=== PATIENT | female | born 1995 | race Caucasian/White ===

== ENCOUNTER 2021-03-17 14:16 | Emergency (ER) | payer MEDICAID, SELFPAY ==
--- NOTE | ~2021-03-17 | US_ITS ---
EXAMINATION: US OBSTETRICAL ULTRASOUND CLINICAL INFORMATION: Pelvic pain. HCG 3670. Last menstrual period unknown. COMPARISON: None. TECHNIQUE: Transabdominal and transvaginal grayscale and color Doppler images were obtained. FINDINGS: There is a single intrauterine gestational sac measuring 0.4 cm and corresponding to a sonographic gestational age of 5 weeks and 0 days. No yolk sac or pole are identified. No subchorionic bleeding. The cervical os is closed. MATERNAL ADNEXA: The right maternal ovary measures 3.4 x 1.4 x 2.0 cm. There is preserved flow on color Doppler. The left maternal ovary measures 3.1 x 2.2 x 2.0 cm. There is preserved on color Doppler. There is no significant maternal adnexal mass. No maternal pelvic ascites. US/US OB <= 14 weeks fetus IMPRESSION: There is a single intrauterine gestational sac corresponding to a gestational age of 5 weeks and 0 days. At this moment, there is no evidence of yolk sac or pole likely due to early gestation. Recommend correlation with quantitative hCG and serial pelvic ultrasounds to ensure viability of the . No evidence of ovarian torsion at the moment of this study. No free fluid.
[2021-03-17 16:18] VITALS: BP 147/88; PULSE 87; RESP 18; BMI 29.2
--- NOTE | 2021-03-17 17:16 | ED_ITS ---
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 Patient tells me her last menstrual cycle was the 1st or 2nd week of December. She is sex ually active. She is not taking any contraception. She did take a test this week and it was positive. She has not followed up with an OB doctor. m She denies any vaginal bleeding she has 1 living child. no history of miscarriages or abortions Related Data Previous Rx's Medication Instructions Recorded prenat.vits,colleen,xbb-[id number] 1 tab PO DAILY #30 tab 03/17/21 Allergies Allergy/AdvReac Type Severity Reaction Status Date / Time No Known Allergies Allergy Verified 03/17/21 16:24 [No Known Allergies*] Review of Systems Review of Systems Yes all other systems are reviewed and are negative Constitutional: Reports no additional constitutional complaints, Denies body ache(s), Denies chills, Denies fever(s), Denies headache(s) and Denies weakness Eyes: Reports no additional eye complaints and Denies change in vision Reports system reviewed and no additional complaints, except as documented, Denies dizziness, Denies headache(s), Denies nasal congestion, Denies nasal discharge and Denies neck pain Cardiovascular: Reports no additional cardiovascular complaints, Denies chest pain, Denies leg edema and Denies dyspnea Respiratory: Reports no additional respiratory complaints, Denies cough and Denies dyspnea Gastrointestinal: Reports no additional gastrointestinal complaints, Denies abdo iesha pain, Denies diarrhea, Denies nausea and Denies vomiting Genitourinary: Reports no additional female genitourinary complaints, Denies abnormal vaginal bleeding, Reports pelvic pain, Denies urinary incontinence and Reports vaginal discharge Musculoskeletal: Reports no additional musculoskeletal complaints, Denies back pain, Denies arthralgias, Denies joint swelling, Denies neck pain, Denies numbness and Denies tingling Skin/Breast: Reports system reviewed and no additional complaints, except as docu and Denies rash Reports system reviewed and no additional complaints, except as documented, Denies Abnormal speech present, Denies dizziness, Denies headache(s), Denies numbness, Denies tingling and Denies weakness Physical Exam Vital Signs: Vital Signs: Last Vital Signs Temp 98.4 F 03/17/21 20:00 Pulse 76 03/17/21 20:00 Resp 18 03/17/21 20:00 BP 116/64 03/17/21 20:00 Pulse Ox 96 03/17/21 20:00 Body Mass Index 29.2 Const: General: cooperative, healthy appearing, comfortable and no acute distress Orientation/consciousness: patient oriented x3 Limitations: no limitations HENMT: Head: Yes normal to inspection Ears: hearing grossly normal bilaterally and TM's normal bilaterally General nose exam: Normal external nose present Face and sinus: Yes normal facial exam Mouth: Normal oral and palatal mucosa present Throat: Yes posterior oropharynx normal Eyes: General: appearance normal, both eyes and all related structures Pupils: Equal, round and reactive pupils present Neck: Neck: Yes normal visual inspection Chest: Chest palpation & inspection: normal inspection of the chest Resp: Effort & Inspection: normal respiratory effort Auscultation: clear to auscultation bilaterally Cardio: Rate: regular rate Rhythm: regular rhythm Peripheral pulses: Peripheral pulses 2+ throughout GI: Inspection: Yes normal to inspection Palpation (GI): Soft to palpation and Tenderness to palpation present (GI) ( mild pelvic tenderness and over the lower abdomen bilaterally with no rebo) Auscultation: normal bowel sounds : 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[facility] External Female Exam: normal external appearance Speculum Exam - Vagina: normal appearance of the vagina and abnormal vaginal discharge ( medium amount creamy yellow discharge) Speculum Exam - Cervix: normal appearance of the cervix, normal palpation, Cervical os closed and nontender Bimanual exam- vagina & uterus: normal bimanual exam, normal palpation and No Cervical tenderness present Bimanual Exam- Adnexa, other: normal adnexae, no masses and no tenderness Back/Spine/Pelvis: Thoracic/Lumbar Spine: thoracic and lumbar spine normal to inspection Skin: General skin exam: no rashes or lesions noted Neuro: General: patient oriented x3, no focal motor deficits and normal sensation to monofilament Cranial nerves: Yes Equal, round and reactive pupils present Cognition (Neuro): normal cognition Speech: No Abnormal speech present Gait exam (Neuro): Normal gait present Motor exam (neuro): 5/5 motor strength present throughout Extrem: General: Yes normal to inspection Course Course Course Narrative: 25-year-old female here with complaints of lower abdominal pitting and discomfort with some creamy yellow vaginal discharge for the last few days. Took at home testing was positive. No vaginal bleeding. Has not had any care to this point. Exam the patient has some mild lower abdominal tenderness bilaterally with no rebound or guarding. Her pelvic exam is unremarkable with the exception of some yellow vaginal discharge. Will check urine, urine , labs. 2100- pelvic ultrasound shows an intrauterine at about 5 weeks. There is no yolk sac or pole seen likely due to early gestation. I discussed findings with the patient. She was given a lab slip for repeat hCG levels and 48 hours. I reviewed worrisome signs and symptoms with her such as severe pain, vaginal bleeding. She is having some vaginal discharge. She tells me she is not concerned about STD exposure and I explained to her that we did test her for all STDs. She wishes to defer treatment until her test results are back. She is aware she may need to return for treatment. She is also aware that untreated STDs are dangerous in . given follow-up for OB. comfortable plan for discharge home. MDM - Abdominal Pain MDM Narrative Medical decision making narrative: pid, Vaginitis, std, ectopic , UTI Medical Records Attestation: I reviewed the patient's medical records. Lab Data Attestation: I reviewed the patient's lab results. Result diagrams: 03/17/21 17:41 03/17/21 17:41 Labs: Lab Results 03/17/21 03/17/21 03/17/21 Range/Units 17:41 17:41 17:52 WBC 10.2 (4.8-10.8) X10*3/uL RBC 4.04 L (4.20-5.50) X10*6/uL Hgb 12.1 (12.0-16.0) g/dl Hct 35.0 L (37.0-47.0) % MCV 86.6 (80.0-98.0) fL MCH 30.0 (27.0-33.0) pg MCHC 34.6 (31.0-35.0) g/dl RDW 12.4 (11.0-16.0) % Plt Count 334 (160-400) X10*3/uL MPV 9.3 L (9.4-12.3) fL Immature Gran % (Auto) 0.5 H (0.0-0.4) % Neut % (Auto) 50.9 (45-73) % Lymph % (Auto) 42.1 H (20-40) % [place] % (Auto) 5.3 (2-11) % Eos % (Auto) 0.8 (0-4) % Baso % (Auto) 0.4 (0-2) % Lymph # (Auto) 4.3 (1.2-4.9) X10*3/uL [place] # (Auto) 0.5 (0.1-1.2) X10*3/uL Eos # (Auto) 0.1 (0.0-0.4) X10*3/uL Baso # (Auto) 0.0 (0.0-0.2) X10*3/uL Abs Immat Gran (auto) 0.05 H (0.00-0.03) X10*3/uL Absolute Neuts (auto) 5.2 (2.0-8.3) x10*3/uL Absolute Nucleated RBC 0.000 (0.0-0.012) X10*3/uL Nucleated RBC % (auto) 0.0 (0.0-0.2) /100WBC Sodium 138 (135-145) mmol/L Potassium 3.8 (3.3-5.1) mmol/L Chloride 107 (96-108) mmol/L Carbon Dioxide 22 (22-29) mmol/L Anion Gap 13 (12-20) BUN 12 (9-16) mg/dL Creatinine 0.82 (0.5-1.4) mg/dL Estim Creat Clear Calc 98.6 Estimated GFR > 60 Random Glucose 88 (60-115) mg/dL Calcium 9.0 (8.4-10.2) mg/dL Total Bilirubin 0.2 (0.0-1.0) mg/dL AST 15 (5-31) U/L ALT 15 (0-31) U/L Alkaline Phosphatase 86 (39-117) U/L Total Protein 7.2 (6.5-8.0) g/dL Albumin 4.1 (3.5-5.0) g/dL Beta HCG, Quant 3670 mIU/mL Urine Color Urine Appearance Urine pH (5.0-8.0) Ur Specific [place] (1.005-1.025) Urine Protein (NEG-TRACE) MG/DL Urine Glucose (UA) (NEG) MG/DL Urine Ketones (NEG) MG/DL Urine Blood (NEG) Urine Nitrite (NEG) Ur Leukocyte Esterase (NEG) Urine RBC (0) /HPF Urine WBC (0-4) /HPF Ur Squamous Epith Cells /LPF Amorphous Sediment /LPF Urine Bacteria /LPF Urine Test POSITIVE H (NEGATIVE) 03/17/21 Range/Units 17:52 WBC (4.8-10.8) X10*3/uL RBC (4.20-5.50) X10*6/uL Hgb (12.0-16.0) g/dl Hct (37.0-47.0) % MCV (80.0-98.0) fL MCH (27.0-33.0) pg MCHC (31.0-35.0) g/dl RDW (11.0-16.0) % Plt Count (160-400) X10*3/uL MPV (9.4-12.3) fL Immature Gran % (Auto) (0.0-0.4) % Neut % (Auto) (45-73) % Lymph % (Auto) (20-40) % [place] % (Auto) (2-11) % Eos % (Auto) (0-4) % Baso % (Auto) (0-2) % Lymph # (Auto) (1.2-4.9) X10*3/uL [place] # (Auto) (0.1-1.2) X10*3/uL Eos # (Auto) (0.0-0.4) X10*3/uL Baso # (Auto) (0.0-0.2) X10*3/uL Abs Immat Gran (auto) (0.00-0.03) X10*3/uL Absolute Neuts (auto) (2.0-8.3) x10*3/uL Absolute Nucleated RBC (0.0-0.012) X10*3/uL Nucleated RBC % (auto) (0.0-0.2) /100WBC Sodium (135-145) mmol/L Potassium (3.3-5.1) mmol/L Chloride (96-108) mmol/L Carbon Dioxide (22-29) mmol/L Anion Gap (12-20) BUN (9-16) mg/dL Creatinine (0.5-1.4) mg/dL Estim Creat Clear Calc Estimated GFR Random Glucose (60-115) mg/dL Calcium (8.4-10.2) mg/dL Total Bilirubin (0.0-1.0) mg/dL AST (5-31) U/L ALT (0-31) U/L Alkaline Phosphatase (39-117) U/L Total Protein (6.5-8.0) g/dL Albumin (3.5-5.0) g/dL Beta HCG, Quant mIU/mL Urine Color YELLOW Urine Appearance HAZY Urine pH 6.5 (5.0-8.0) Ur Specific [place] 1.020 (1.005-1.025) Urine Protein NEG (NEG-TRACE) MG/DL Urine Glucose (UA) NEG (NEG) MG/DL Urine Ketones NEG (NEG) MG/DL Urine Blood NEG (NEG) Urine Nitrite NEG (NEG) Ur Leukocyte Esterase 1+ H (NEG) Urine RBC 0 (0) /HPF Urine WBC 1-4 (0-4) /HPF Ur Squamous Epith Cells 3+ /LPF Amorphous Sediment 1+ /LPF Urine Bacteria NONE /LPF Urine Test (NEGATIVE) Imaging Data pelvic US: Attestation: I personally reviewed and interpreted this imaging study as follows: Radiologist's impression: IMPRESSION: ? There is a single intrauterine gestational sac corresponding to a gestational age of 5 weeks and 0 days. At this moment, there is no evidence of yolk sac or pole likely due to early gestation. Recommend correlation with quantitative hCG and serial pelvic ultrasounds to ensure viability of the . ? No evidence of ovarian torsion at the moment of this study. ? No free fluid. ? Discharge Plan Discharge Clinical Impression: Threatened , Early stage of Patient Disposition: Home, Self-Care Instructions: Threatened Miscarriage (ED), (ED) Additional Instructions: Tylenol only for pain increase fluid return for severe pain or vaginal bleeding your ultrasound does show a intrauterine however it is too early to see the heart beat and all of the parts of the fetus follow-up with Ob repeat hormone level in 48 hours pelvic rest Prescriptions: New prenat.vits,colleen,krr-ltqq-[id number] Tablet 1 tab PO DAILY Qty: 30 RF: 0 Referrals: Terry Odonnell MD [Physician] - 2 days Interventions: ED Discharge Assessment Last Done: 03/17/21 20:41 Discharge Date/Time: 03/17/21 20:42 Print Language: Sinhala [facility] Past Medical History Attestation statement: The following information was validated with the patient. Source: old records reviewed and nursing notes reviewed Social History Social History Advance Directives: No Advance Directives Information Provided: No Patient : Yes
[2021-03-17 17:57] LABS: MANUAL DIFF FLAG NO
[2021-03-17 18:00] LABS: Appearance Urine HAZY; Color Urine YELLOW; Glucose Urine UA NEG (NEG); Leukocyte Esterase Urine 1+ (NEG); Nitrite Urine NEG (NEG); PH 6.5 (5.0-8.0); UACC Culture Trigger YES; Urine Blood NEG (NEG); Urine Ketones NEG (NEG); Urine Protein NEG (NEG-TRACE)
[2021-03-17 18:02] LABS: UPreg QC Valid YES; Urine Pregnancy POSITIVE (NEGATIVE)
[2021-03-17 18:08] LABS: Amorphous Sediment Urine 1+ /LPF; RBC Urine 0 /HPF (0); Squamous Epithelial Cell Urine 3+ /LPF
[2021-03-17 18:17] LABS: Basophils Percent Auto 0.4 % (0-2); Eosinophils Absolute Auto 0.1 X10*3/uL (0.0-0.4); Eosinophils Percent Auto 0.8 % (0-4); Hemoglobin 12.1 g/dl (12.0-16.0); Imm Gran Abs Auto 0.05 X10*3/uL (0.00-0.03); Imm Gran Pct Auto 0.5 % (0.0-0.4); Lymphocytes Absolute Auto 4.3 X10*3/uL (1.2-4.9); Lymphocytes Percent Auto 42.1 % (20-40); Mean Corpuscular HGB Conc 34.6 g/dl (31.0-35.0); Mean Corpuscular Volume 86.6 fL (80.0-98.0); Mean Platelet Volume 9.3 fL (9.4-12.3); Monocytes Absolute Auto 0.5 X10*3/uL (0.1-1.2); Monocytes Percent Auto 5.3 % (2-11); Neutrophils Absolute Auto 5.2 x10*3/uL (2.0-8.3); Neutrophils Percent Auto 50.9 % (45-73); Platelet Count 334 X10*3/uL (160-400); Red Blood Count 4.04 X10*6/uL (4.20-5.50); Red Cell Distribution Width 12.4 % (11.0-16.0); White Blood Count 10.2 X10*3/uL (4.8-10.8)
[2021-03-17 18:21] LABS: Alanine Aminotransferase 15 U/L (0-31); Albumin Level 4.1 g/dL (3.5-5.0); Alkaline Phosphatase 86 U/L (39-117); Anion Gap 13 (12-20); Aspartate Amino Transferase 15 U/L (5-31); Bilirubin Total 0.2 mg/dL (0.0-1.0); Blood Urea Nitrogen 12 mg/dL (9-16); Carbon Dioxide 22 mmol/L (22-29); Chloride 107 mmol/L (96-108); Creatinine Clr Calc Pharmacy 98.6; Estimated Glomerular Filt Rate > 60; Glucose Random 88 mg/dL (60-115); Potassium 3.8 mmol/L (3.3-5.1); Sodium 138 mmol/L (135-145); Total Protein 7.2 g/dL (6.5-8.0)
[2021-03-17 18:27] LABS: HCG Quantitative 3670 mIU/mL
[2021-03-17 20:00] VITALS: BP 116/64; PULSE 76; RESP 18; TEMP 36.9; O2SAT 96
--- NOTE | 2021-03-17 20:06 | PC.NURSE ---
Pt alert and oriented x4, calm and cooperative. Pt states abd pain has improved, denies N/V. IV intact, vitals stable. Pt resting in stretcher without issues, will continue to monitor.
[2021-03-18 05:31] LABS: CT PCR NOT DETECTED (Not Detect.); NG PCR NOT DETECTED (Not Detect.)
[2021-03-18 09:21] LABS: BV Int Neg Control Negative (Negative); BV Int Pos Control Positive (Positive)
== END 2021-03-17 20:42 | disposition home or self-care (01) ==
PROVIDERS: Nurse Practitioner Family; Emergency Provider Emergency Medicine
DX: O20.0 Threatened abortion (principal); Z3A.01 Less than 8 weeks gestation of pregnancy
CPT/HCPCS: 36415; 76801; 80053; 81001; 81025; 84702; 85025; 87086; 87480; 87491; 87510; 87591; 87660; 99284

== ENCOUNTER 2021-03-31 14:34 | Outpatient (REF) | payer MEDICAID, SELFPAY ==
--- NOTE | ~2021-03-31 | US_ITS ---
EXAMINATION: US OBSTETRICAL ULTRASOUND CLINICAL INFORMATION: Encounter for supervision abnormal COMPARISON: Previous exam 03/17/2021. LMP: Unknown. Gestational age by maternal dates is . Estimated date of delivery by maternal dates is . TECHNIQUE: Transabdominal and transvaginal first trimester OB ultrasound FINDINGS: The uterus is anteverted and measures 9.3 x 5.8 x 7 cm in dimension. There is an intrauterine gestational sac. Strum-rump length measures 0.7 cm suggesting gestational age of 6 weeks 4 days with estimated date of delivery of 11/20/2021. heart rate is 135 bpm. There is a yolk sac. The maternal ovaries are normal. The right maternal ovary measures 4.2 x 2 x 1.9 cm and the left 2.4 x 2.7 x 1.8 cm. There is no fluid in the pelvis. US/US OB <= 14 weeks fetus IMPRESSION: 1. Single intrauterine gestation with ultrasound gestational age of 6 weeks 4 days +/- 4 days. 2. Estimated date of delivery is 11/20/2021 +/- 4 days. 3. No maternal adnexal mass or pelvic ascites.
== END 2021-03-31 14:35 | disposition home or self-care (01) ==
LOC: HO.US 14:34
PROVIDERS: Visit Provider Obstetrics & Gynecology
DX: Z34.91 Encounter for supervision of normal pregnancy, unspecified, first trimester (principal)
CPT/HCPCS: 76801; 99212

== ENCOUNTER 2021-04-14 09:57 | Outpatient (REF) | payer MEDICAID, SELFPAY ==
[2021-04-14 11:41] LABS: Hematocrit 36.4 % (37.0-47.0); Hemoglobin 12.3 g/dl (12.0-16.0); Mean Corpuscular HGB Conc 33.8 g/dl (31.0-35.0); Mean Corpuscular Hemoglobin 29.3 pg (27.0-33.0); Mean Corpuscular Volume 86.7 fL (80.0-98.0); Mean Platelet Volume 9.4 fL (9.4-12.3); Platelet Count 353 X10*3/uL (160-400); Red Cell Distribution Width 12.4 % (11.0-16.0); White Blood Count 8.3 X10*3/uL (4.8-10.8)
[2021-04-14 12:31] LABS: ~Hepatitis C Antibody Nonreactive (Nonreactive)
[2021-04-14 12:33] LABS: HBsAGNum1 0.26 S/CO (0.00-0.99); HIV AB/AG Nonreactive (Nonreactive); HIV Num 1 0.06 S/CO (0.00-0.99); Hepatitis B Surface Antigen Negative (Negative)
[2021-04-14 12:56] LABS: Syphilis Screen Nonreactive (Nonreactive)
[2021-04-16 05:06] LABS: Rubella IgG Antibody 1.09 Index
== END 2021-04-14 09:58 | disposition home or self-care (01) ==
LOC: HO.LAB 09:57
PROVIDERS: PCP Internal Medicine; Visit Provider Obstetrics & Gynecology
DX: O21.9 Vomiting of pregnancy, unspecified (principal); Z3A.08 8 weeks gestation of pregnancy
CPT/HCPCS: 85027; 86762; 86780; 86787; 86803; 86850; 86900; 86901; 87340; 87389; 99212

== ENCOUNTER 2021-05-08 15:13 | Outpatient (REF) | payer MEDICAID, SELFPAY ==
[2021-05-09 14:22] LABS: BV Int Neg Control Negative (Negative); BV Int Pos Control Positive (Positive)
[2021-05-09 14:24] LABS: CT PCR NOT DETECTED (Not Detect.); NG PCR NOT DETECTED (Not Detect.)
== END 2021-05-08 15:14 | disposition home or self-care (01) ==
LOC: HO.LAB 15:13
PROVIDERS: Visit Provider Advanced Practice Midwife
DX: Z01.419 Encounter for gynecological examination (general) (routine) without abnormal findings (principal); O21.9 Vomiting of pregnancy, unspecified; O21.0 Mild hyperemesis gravidarum; O36.80X0 Pregnancy with inconclusive fetal viability, not applicable or unspecified; Z20.2 Contact with and (suspected) exposure to infections with a predominantly sexual mode of transmission; Z79.899 Other long term (current) drug therapy; Z3A.12 12 weeks gestation of pregnancy
CPT/HCPCS: 87480; 87491; 87510; 87591; 87660; 88142; 99212

== ENCOUNTER 2021-05-09 09:40 | Outpatient (REF) | payer MEDICAID, SELFPAY ==
--- NOTE | ~2021-05-09 | US_ITS ---
EXAMINATION: OBSTETRICAL ULTRASOUND, FIRST TRIMESTER HISTORY: 25-year-old at the 12.1 weeks of gestation NT screening COMPARISON: 03/31/2021 TECHNIQUE: Real time transabdominal imaging with color and M-mode Doppler. FINDINGS: A single, live IUP CRL of 60.0 mm c/w 12.4wks is noted. Heart Rate: 149 beats per minute. Normal yolk sac seen. NT was 1.9.mm. NB Present The embryo appears sonographically wnl for this GA. Both maternal ovaries are seen and appear normal. GESTATIONAL AGE: 1. Established GA: 12.1 wks 2. GA from [facility]: 12.4 wks ESTIMATED DATE OF DELIVERY: 1. Established RAYSHAWN: 11/20/2021 2. RAYSHAWN from [facility]: 11/17/2021 US/US OB 1T nuc measure IMPRESSION: 1. A single live IUP with CRL consistent with gestational age. 2. Normal NT 3. The embryo appears sonographically within normal limits for this age. MFM Consultation: I reviewed the ultrasound findings along with significance of NT measurement. The NT of less than 3mm is generally reassuring. However, the sensitivity for T21 detection is only 60%. I reviewed the availability of serum aneuploidy screening which includes cell-free DNA and placental protein based tests. I discussed the sensitivity, false-positive rate, and other limitations associated with each test. I also reviewed the availability of invasive diagnostic tests that are associated small but definite risk of miscarriage. We also reviewed the differences between screening tests and diagnostic tests. After our discussion, she opted for the First trimester screening that is based on cell-free DNA or non-invasive testing (NIPT). She had a normal full-term from a prior marriage. The result will be faxed to your office in approximately 7 days. A follow up at 18 weeks for survey has been scheduled. Thank you very much for this referral. Total time 30 minutes. The time spent was devoted to counseling the patient about the disease and diagnosis, coordinating care including reviewing her records, pertinent lab data and studies, as well as discussing diagnostic evaluation and workup, plan therapeutic interventions and future disposition of care. This includes any additional research needed to obtain further information in formulating the plan of care of this patient. This note was generated with a voice recognition program. Please excuse any errors which may have been overlooked during my review of this note. Sometimes these errors may affect the content or meaning of a given sentence.
== END 2021-05-09 09:41 | disposition home or self-care (01) ==
LOC: HO.US 09:40
PROVIDERS: PCP Internal Medicine; Visit Provider Advanced Practice Midwife
DX: O36.80X0 Pregnancy with inconclusive fetal viability, not applicable or unspecified (principal); Z3A.12 12 weeks gestation of pregnancy
CPT/HCPCS: 76813

== ENCOUNTER 2021-05-16 09:41 | Outpatient (REF) | payer MEDICAID, SELFPAY ==
[2021-05-16 14:08] LABS: CT PCR NOT DETECTED (Not Detect.); NG PCR NOT DETECTED (Not Detect.)
[2021-05-17 09:49] LABS: BV Int Neg Control Negative (Negative); BV Int Pos Control Positive (Positive)
== END 2021-05-16 09:42 | disposition home or self-care (01) ==
LOC: HO.LAB 09:41
PROVIDERS: PCP Internal Medicine; Visit Provider Advanced Practice Midwife
DX: O26.891 Other specified pregnancy related conditions, first trimester (principal); R10.9 Unspecified abdominal pain; R30.0 Dysuria; R35.0 Frequency of micturition; N89.8 Other specified noninflammatory disorders of vagina; Z3A.13 13 weeks gestation of pregnancy
CPT/HCPCS: 87086; 87480; 87491; 87510; 87591; 87660; 99212

== ENCOUNTER → 2021-05-28 16:12 | Outpatient (BNVA) | payer MEDICAID, SELFPAY | PROVIDERS: Visit Provider Obstetrics & Gynecology ==

== ENCOUNTER → 2021-06-05 09:54 | Outpatient (BNVA) | payer MEDICAID, SELFPAY | PROVIDERS: Visit Provider Obstetrics & Gynecology | DX: O28.5 Abnormal chromosomal and genetic finding on antenatal screening of mother (principal); Z3A.16 16 weeks gestation of pregnancy | CPT/HCPCS: 99212 ==

== ENCOUNTER 2021-06-19 07:55 | Outpatient (REF) | payer MEDICAID, SELFPAY ==
[2021-06-19 17:18] LABS: CT PCR NOT DETECTED (Not Detect.); NG PCR NOT DETECTED (Not Detect.)
[2021-06-20 13:06] LABS: BV Int Neg Control Negative (Negative); BV Int Pos Control Positive (Positive)
== END 2021-06-19 07:56 | disposition home or self-care (01) ==
LOC: HO.LAB 07:55
PROVIDERS: Visit Provider Obstetrics & Gynecology
DX: O26.892 Other specified pregnancy related conditions, second trimester (principal); N89.8 Other specified noninflammatory disorders of vagina; Z3A.18 18 weeks gestation of pregnancy
CPT/HCPCS: 87480; 87491; 87510; 87591; 87660; 99212

== ENCOUNTER 2021-06-20 10:05 | Outpatient (REF) | payer MEDICAID, SELFPAY ==
--- NOTE | ~2021-06-20 | US_ITS ---
EXAMINATION: US OBSTETRICAL CLINICAL INFORMATION: 25-year-old at 18.1 weeks of gestation N IPT suggestive of a triple X COMPARISON: 05/09/2021 TECHNIQUE: Real-time transabdominal ultrasound was performed using C1-5 megahertz transducer. FINDINGS: A single, active, fetus is seen in transverse presentation. The placenta is anterior without previa, and the amniotic fluid volume is wnl. MEASUREMENTS: 1. Biparietal Diameter: 4.0 cm; 18.2 wks 2. Occipital Frontal Diameter: 5.2 cm 3. Head Circumference: 15.2 cm; 18.2 wks 4. Abdominal Circumference: 12.9 cm; 18.4 wks 5. Femur Length: 2.8 cm; 18.5 wks 6. Humerus Length: 2.7 cm; 18.6 wks 7. Tibia Length: 2.5 cm; 18.6 wks 8. Ulna Length: 2.5 cm; 19.2 wks 9. Lateral ventricle: 0.6 cm 10. Cerebellum: 1.9 cm; 19.2 wks 11. Cisterna Magna: 0.5 cm 12. Nuchal Fold: 4.0 mm 13. Heart Rate: 134 beats per minute Rt ovary: normal Lt ovary: normal Cervical length 4.1 cm on T/A. GESTATIONAL AGE: 1. Established GA: 19.5 wks 2. GA from [facility]: 19.6 wks ESTIMATED DATE OF DELIVERY: 1. Established RAYSHAWN: 11/09/2021 2. RAYSHAWN from [facility]: 11/08/2021 ANATOMY: The visualized anatomy includes but not limited to: 1. Cranium: Normal 2. Intracranial anatomy: cavum septum pellucidi, lateral ventricles, choroid plexus, cerebellum, posterior fossa, third and fourth ventricles. 3. face: orbits, lip/palate, profile, nasal bone 4. Heart: four-chamber view of the heart, ventricular septum, foramen ovale, pulmonary vein, left and right outflow tracts, three-vessel view, 3 vessel trachea view, aortic and ductal arches, situs.. 5. Diaphragm: Normal 6. Abdominal wall: Normal 7. Cord Insertion: Normal 8. Spine: Cervical, thoracic, lumbar, sacral. 9. Stomach: Normal size and shape 10. Right Kidney: Normal 11. Left Kidney: Normal 12. 3 vessel cord: Normal 13. Upper extremity: Open hands, fifth digit. 14. Lower extremity: Tibia, fibula, bilateral feet. 15. Bladder: Normal 16. Genitalia: Male US/US OB /maternal detail IMPRESSION: 1. Single, living, intrauterine with appropriate biometry. 2. Normal survey Although the N IPT was suggestive of trisomy X, male fetus was noted on today's exam. The false-positive rate of N IPT in detecting triple X syndrome is unknown. Although there are no diagnostic sonographic features of triplex syndrome, phenotypically individuals with triple X syndrome are female. 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 Increased instance of the abnormal growth pattern has been reported in the setting of confined placental mosaicism involving X chromosome. RECOMMENDATIONS: 1. Suggest the follow-up growth in approximately 6 weeks (not scheduled). Thank you for allowing me to participate in her care. This note was generated with a voice recognition program. Please excuse any errors which may have been overlooked during my review of this note. Sometimes these errors may affect the content or meaning of a given sentence.
== END 2021-06-20 10:06 | disposition home or self-care (01) ==
LOC: HO.US 10:05
PROVIDERS: Visit Provider Obstetrics & Gynecology
DX: Z34.92 Encounter for supervision of normal pregnancy, unspecified, second trimester (principal); Z3A.18 18 weeks gestation of pregnancy
CPT/HCPCS: 76811

== ENCOUNTER → 2021-07-03 10:49 | Outpatient (BNVA) | payer MEDICAID, SELFPAY | PROVIDERS: Visit Provider Obstetrics & Gynecology | DX: O28.5 Abnormal chromosomal and genetic finding on antenatal screening of mother (principal); Z3A.20 20 weeks gestation of pregnancy | CPT/HCPCS: 99212 ==

== ENCOUNTER → 2022-06-25 14:22 | Outpatient (BNVA) | payer MEDICAID, SELFPAY | PROVIDERS: Visit Provider Surgery | DX: L72.0 Epidermal cyst (principal) | CPT/HCPCS: 99202 ==

== ENCOUNTER 2022-09-08 12:30 | Outpatient (REF) | payer MEDICAID, SELFPAY ==
[2022-09-08 12:36] VITALS: BMI 32.2
[2022-09-08 12:37] VITALS: BP 116/75; PULSE 83; RESP 16; TEMP 36.3; O2SAT 97
--- NOTE | 2022-09-08 13:21 | W.PM.OPN ---
Operative Note Operative Note Date of Service: 09/08/22 Narrative: Preoperative diagnosis:Epidermal inclusion cyst left buttock Postoperative diagnosis: same Procedure: excision of epidermal inclusion cyst left buttock Surgeon: Dante Casillas MD Nurse Informatics Educator: none Anesthesia: local Indications for procedure: 26-year-old female presenting with a 1.5 cm sebaceous cyst of the left buttock previously infected, incised and drained, presenting today for complete excision Operative findings: 1.5 cm epidermal inclusion cyst left buttock Specimen: epidermal inclusion cyst left buttock Estimated blood loss: less than 1 mL Complications: none Procedure details: patient was brought to the minor surgery suite placed in a prone position. The site of surgery was confirmed by the patient in the left buttock. After assuring informed consent the skin was prepped with Betadine and draped in a sterile fashion. Local was then infiltrated around the lesion. An oblique incision was then made with a scalpel carried out through subcutaneous tissue. The cyst was then excised using sharp dissection. This was then passed off the table and sent to pathology for further examination. Dermis was then reapproximated using interrupted 3-0 Polysorb sutures. Skin was closed using interrupted 3-0 Prolene sutures. 2 x 2 gauze and Tegaderm were then applied. The patient tolerated the procedure well. She was discharged to home in stable condition.
[2022-09-08 13:25] VITALS: BP 126/61; PULSE 66; RESP 16; O2SAT 98
== END 2022-09-08 12:31 | disposition home or self-care (01) ==
LOC: HO.MS 12:30
PROVIDERS: Visit Provider Surgery
PROC: (CPT 11402; principal; 2022-09-08 13:00)
DX: L72.0 Epidermal cyst (principal)
CPT/HCPCS: 11402; 88304

== ENCOUNTER → 2022-09-17 14:41 | Outpatient (BNVA) | payer MEDICAID, SELFPAY | PROVIDERS: Visit Provider Surgery | DX: L72.0 Epidermal cyst (principal) | CPT/HCPCS: 99212 ==

== ENCOUNTER 2022-12-15 18:17 | Outpatient (REF) | payer MEDICAID, SELFPAY ==
[2022-12-15 19:59] LABS: Influenza A PCR NEGATIVE (Negative); Influenza B PCR NEGATIVE (Negative); Resp Syncy Virus RNA Qual PCR NEGATIVE (Negative); SARS COV2 PCR INHOUSE NEGATIVE (Negative)
== END 2022-12-15 18:18 | disposition home or self-care (01) ==
LOC: HO.HHCLNP 18:17
PROVIDERS: Visit Provider Registered Nurse
DX: J02.9 Acute pharyngitis, unspecified (principal); Z20.822 Contact with and (suspected) exposure to COVID-19
CPT/HCPCS: 0241U

== ENCOUNTER 2024-01-05 12:52 | Outpatient (REF) | payer MEDICAID, SELFPAY ==
--- NOTE | ~2024-01-05 | US_ITS ---
EXAMINATION: US DIAGNOSTIC ULTRASOUND BREAST, BILATERAL CLINICAL INFORMATION: Bilateral superior breast pain, comes and goes, 28-year-old female. No significant family history of breast CA. COMPARISON: None. Baseline study. TECHNIQUE: Ultrasound of the both breasts was performed in the regions of pain spanning 9-3:00 bilaterally with real-time negron scale imaging and color Doppler. FINDINGS: There is no focal suspicious finding in either breast. There is no solid mass, cystic abnormality, abnormal shadowing, duct ectasia, or edema in the soft tissue planes. No sonographic correlate to bilateral superior breast pain. Results are provided to the patient at time of visit by the technologist. US/US breast BI limited mamm only IMPRESSION: No findings suspicious for malignancy. No correlate in either breast sonographically to explain superior on and off breast pain. Recommend clinical mammographic follow-up. ASSESSMENT: BI-RADS 1: Negative RECOMMENDATION: 1. Patient should be managed based on the clinical impression. This patient's information was entered into a reminder system with a target due date for their next mammogram. Electronically signed by: Juan Pablo Daniel MD 01/05/2024 01:44 PM EDT
== END 2024-01-05 12:53 | disposition home or self-care (01) ==
LOC: HO.MAMMO 12:52
PROVIDERS: PCP Internal Medicine; Visit Provider Internal Medicine
DX: N64.4 Mastodynia (principal)
CPT/HCPCS: 76642

== ENCOUNTER → 2024-01-05 13:00 | Outpatient (BNV) | payer MEDICAID, SELFPAY | PROVIDERS: PCP Internal Medicine; Visit Provider Radiology Diagnostic Radiology | DX: N64.4 Mastodynia (principal) | CPT/HCPCS: 76642 ==